=== PATIENT | female | born 1965 | race Caucasian/White ===

== ENCOUNTER 2017-06-20 08:28 | Day surgery (SDC) | END 2017-06-20 16:13 | disposition home or self-care (01) | DX: D17.21 Benign lipomatous neoplasm of skin and subcutaneous tissue of right arm (principal); M19.90 Unspecified osteoarthritis, unspecified site; Z88.4 Allergy status to anesthetic agent | CPT/HCPCS: 14021; 23071; 71010; 80053; 85025; 85610; 85730; 88307; 93005; J0690; J1100; J2250; J2405; J3010; Z7512; Z7610 ==